=== PATIENT | female | born 1995 | race Two or more races ===

== ENCOUNTER 2017-08-18 10:27 | Emergency (ER) | payer SELFPAY ==
[~2017-08-18] VITALS: Ht 177.8 cm; Wt 93.0 kg
[2017-08-18 10:39] VITALS: BP 142/84
[2017-08-18] MEDS ORDERED: KETOROLAC TROMETH 60MG/2ML VIAL IM ONE (11:30)
== END 2017-08-18 12:34 | disposition home or self-care (01) ==
LOC: ER 10:27
DX: S62.141A Displaced fracture of body of hamate [unciform] bone, right wrist, initial encounter for closed fracture (principal); S62.346A Nondisplaced fracture of base of fifth metacarpal bone, right hand, initial encounter for closed fracture; W22.8XXA Striking against or struck by other objects, initial encounter; Y93.89 Activity, other specified; Y99.8 Other external cause status; Y92.89 Other specified places as the place of occurrence of the external cause
CPT/HCPCS: 29125; 73110; 73130; 96372; 99284; J1885

== ENCOUNTER 2023-04-20 07:17 | Emergency (ER) | payer MEDICAID, OTHER ==
[~2023-04-20] VITALS: Ht 177.8 cm; Wt 99.3 kg
[2023-04-20 08:11] LABS: Urine Bacteria NONE SEEN /hpf (None Seen); Urine Blood 3+ /uL (Negative); Urine Clarity Clear (Clear); Urine Color PINK (Yellow); Urine Protein, UAD TRACE (Negative); Urine Specific Gravity 1.022 (1.001-1.035); Urine Urobilinogen Normal (Negative); Urine WBC 25 /hpf (0 - 5); Urine pH 6.5 (5.0-8.0)
[2023-04-20] MEDS ORDERED: ACETAMINOPHEN 500 MG TAB PO ONE (08:15)
[2023-04-20] MEDS ORDERED: IBUP-1454 PO (10:25)
[2023-04-20] MEDS ORDERED: NITR-87 PO (10:25)
[2023-04-20 10:35] VITALS: BP 108/68; PULSE 72; RESP 12; TEMP 98.5; O2SAT 97
== END 2023-04-20 10:51 | disposition home or self-care (01) ==
LOC: ER 07:17
DX: N94.6 Dysmenorrhea, unspecified (principal); R82.998 Other abnormal findings in urine
CPT/HCPCS: 76830; 76856; 81001